=== PATIENT | female | born 1985 | race Hispanic/Latino ===

== ENCOUNTER 2018-03-18 01:51 | Emergency (ER) | payer OTHER ==
[2018-03-18 03:09] LABS: APPEARANCE,URINE Clear (CLEAR); BILIRUBIN,URINE Negative (NEGATIVE); COLOR,URINE Yellow (YELLOW); GLUCOSE, URINE (UA) Negative (NEGATIVE); KETONES,URINE Trace mg/dL (NEGATIVE); LEUKOCYTE ESTERASE ,URINE Negative (NEGATIVE); NITRATE,URINE Negative (NEGATIVE); OCCULT BLOOD,URINE Large (NEGATIVE); PROTEIN,URINE Negative (NEGATIVE); UROBILINOGEN,URINE 0.2 mg/dL (0.2-1.0)
[2018-03-18 03:18] LABS: HCG,QUAL RESULT NEGATIVE (NEGATIVE)
[2018-03-18 03:21] LABS: BACTERIA,URINE None Seen /HPF (None Seen); MUCUS,URINE Moderate LPF (None Seen); SQUAMOUS EPITHELIAL CELL,UR Few /HPF (0-2); WBC,URINE 0-1 /HPF (0-1)
[2018-03-18] MEDS ORDERED: METOCLOPRAMIDE 10 MG/2 ML VIAL ONE (04:02)
[2018-03-18] MEDS ORDERED: DiphenhydrAMINE HCL 50 MG/ML VIAL ONE ×2 (04:02→04:11)
[2018-03-18] MEDS ORDERED: KETOROLAC TROMETHAMINE 30MG/ML ONE (04:03)
[2018-03-18] MEDS ORDERED: SODIUM CHLORIDE 0.9% 1000ML 1,000 ML IV ONE (04:03)
== END 2018-03-18 05:27 | disposition home or self-care (01) ==
LOC: EDH 01:51
DX: G43.009 Migraine without aura, not intractable, without status migrainosus (principal); Z72.0 Tobacco use
CPT/HCPCS: 81001; 81025; 96361; 96374; 96375; 99284; J1200 ×2; J1885; J2765; J7030